=== PATIENT | male | born 1990 | race Caucasian/White ===

== ENCOUNTER 2017-01-06 14:10 | Inpatient (IN) | payer BC ==
[2017-01-06 15:48] VITALS: BMI 24.5
[2017-01-06] MEDS ORDERED: METHADONE HCL 10 MG TABLET (FOR DETOX USE ONLY) PO ONE ×2 (16:33→23:00)
[2017-01-06] MEDS ORDERED: guaiFENesin/D-METHORPHAN HB 10 ML UNIT-DOSE CUPS PO PRN (16:33)
[2017-01-06] MEDS ORDERED: MAGNESIUM HYDROX 2400MG/30ML ORAL SUSPENSION 30 ML CUP PO PRN (16:33)
[2017-01-06] MEDS ORDERED: LOPERAMIDE HCL 2 MG CAPSULE PO PRN (16:33)
[2017-01-06] MEDS ORDERED: MAGNESIUM CITRATE 300 ML BOTTLE PO PRN (16:33)
[2017-01-06] MEDS ORDERED: ACETAMINOPHEN 325 MG TABLET (FP) PO PRN (16:33)
[2017-01-06] MEDS ORDERED: MENTHOL/PHENOL 1 EACH UD MM PRN (16:33)
--- NOTE | 2017-01-06 16:37 | HP ---
COWS - Scale Resting Pulse: 1= [place] 81-100 Sweatin= Chills/Flushing Restless Observation: 1= Difficult to Sit Still Pupil Size: 1= Pupils >than Normal Bone or Joint Aches: 1= Mild Discomfort Runny Nose/ Eye Tearin= Runny Nose/Eyes GI Upset > 30mins: 1= Stomach Cramp Tremor Observation: 2= Slight Tremor Visible Yawning Observation: 0= None Anxiety or Irritability: 2=Irritable/Anxious Goose Flesh Skin: 3=Piloerection COWS Score: 15 Admission ROS S - HPI Chief Complaint: withdrawal sx Allergies/Adverse Reactions: Allergies Allergy/AdvReac Type Severity Reaction Status Date / Time SEAFOOD Allergy Severe Vomiting Uncoded 01/06/17 16:34 NKDA Allergy Uncoded 01/06/17 16:35 History of Present Illness: 26 years old male with long history of opiate nicotine dependence, has gerd and depression is admitted to detox Exam Limitations: No Limitations - Ebola screening Have you traveled outside of the country in the last 21 days: No Have you had contact with anyone from an Ebola affected area: No Have you been sick,other than usual withdrawal symptoms: No Do you have a fever: No - Review of Systems Constitutional: Chills, Changes in sleep, Weight Stable EENT: reports: No Symptoms Reported Respiratory: reports: Productive cough (brownish) Cardiac: reports: No Symptoms Reported GI: reports: Nausea, Poor Fluid Intake, Indigestion, Abdominal cramping : reports: No Symptoms Reported Musculoskeletal: reports: Back Pain Integumentary: reports: Change in Color (right inner elbow iv opiate) Neuro: reports: Tremors Endocrine: reports: No Symptoms Reported Hematology: reports: No Symptoms Reported Psychiatric: reports: Judgement Intact, Orientated x3, Depressed Other Systems: Reviewed and Negative Patient History - Patient Medical History Hx Anemia: No Hx Asthma: No Hx Chronic Obstructive Pulmonary Disease (COPD): No Hx Cancer: No Hx Cardiac Disorders: No Hx Congestive Heart Failure: No Hx Hypertension: No Hx Hypercholesterolemia: No Hx Pacemaker: No HX Cerebrovascular Accident: No Hx Seizures: No Hx Dementia: No Hx Diabetes: No Hx Gastrointestinal Disorders: Yes Hx Liver Disease: No Hx Genitourinary Disorders: No Hx Sexually Transmitted Disorders: No Hx Renal Disease (ESRD): No Hx Thyroid Disease: No Hx Human Immunodeficiency Virus (HIV): No Hx Hepatitis C: No Hx Depression: Yes Hx Suicide Attempt: No Hx Bipolar Disorder: No Hx Schizophrenia: No - Patient Surgical History Past Surgical History: Yes Hx Neurologic Surgery: No Hx Cataract Extraction: No Hx Cardiac Surgery: No Hx Lung Surgery: No Hx Breast Surgery: No Hx Breast Biopsy: No Hx Abdominal Surgery: No Hx Appendectomy: Yes Hx Cholecystectomy: No Hx Genitourinary Surgery: No Hx Orthopedic Surgery: No Anesthesia Reaction: No - PPD History Previous Implant?: Yes Documented Results: Negative w/o proof Implanted On Prior [facility] Admission?: No PPD to be Administered?: Yes - Smoking Cessation Smoking history: Current every day smoker Have you smoked in the past 12 months: Yes Aproximately how many cigarettes per day: 20 Cigars Per Day: 0 Hx Chewing Tobacco Use: No Initiated information on smoking cessation: Yes 'Breaking Loose' booklet given: 01/06/17 - Substance & Tx. History Hx Alcohol Use: No Hx Substance Use: Yes Substance Use Type: Opiates Hx Substance Use Treatment: Yes - Substances Abused Heroin Route: Injection Frequency: Daily Family Disease History - Family Disease History Family Disease History: Other: Father (colitis) Admission Physical Exam [facility] - Vital Signs Vital Signs: Vital Signs - 24 hr 01/06/17 15:44 Temperature 95.8 F L Pulse Rate 83 Respiratory 18 Rate Blood Pressure 115/75 - Physical General Appearance: Yes: Nourished, Appropriately Dressed, Mild Distress, Tremorous, Irritable, Sweating, Anxious HEENTM: Yes: Hearing grossly Normal, Normal ENT Inspection, Normocephalic, Normal Voice Respiratory: Yes: Chest Non-Tender, Lungs Clear, Normal Breath Sounds, No Respiratory Distress, No Accessory Muscle Use Neck: Yes: Supple, Trachea in good position Breast: Yes: Breasts Symetrical Cardiology: Yes: Regular Rhythm, Regular Rate, S1, S2 Abdominal: Yes: Non Tender, Soft Genitourinary: Yes: Within Normal Limits Back: Yes: Normal Inspection Musculoskeletal: Yes: full range of Motion, Gait Steady, Back pain Extremities: Yes: Normal Range of Motion, Non-Tender, Tremors, Other (right inner elbow iv opiate) Neurological: Yes: Fully Oriented, Alert, Motor Strength 5/5, Normal Response, Depressed Affect Integumentary: Yes: Warm, Track Lorenzo Lymphatic: Yes: Within Normal Limits - Diagnostic (1) Opioid dependence with withdrawal Current Visit: Yes Status: Acute (2) Nicotine dependence Current Visit: Yes Status: Acute Qualifiers: Nicotine product type: cigarettes Substance use status: in withdrawal Qualified Code(s): F17.213 - Nicotine dependence, cigarettes, with withdrawal (3) GERD (gastroesophageal reflux disease) Current Visit: Yes Status: Acute Qualifiers: Esophagitis presence: without esophagitis Qualified Code(s): K21.9 - Gastro-esophageal reflux disease without esophagitis (4) Depression (emotion) Current Visit: Yes Status: Suspected Qualifiers: Depression Type: dysthymia Qualified Code(s): F34.1 - Dysthymic disorder Cleared for Admission S - Detox or Rehab [facility] Level of Care: Medically Managed Detox Regimen/Protocol: Methadone S Breath Alcohol Content Breath Alcohol Content: 0 Urine Drug Screen - Control Is Test Valid: Yes - Results Drug Screen Negative: No Urine Drug Screen Results: OPI-Opiates, BZO-Benzodiazepines, TCA-Tricyclic Antidepress, OXY-Oxycodone
[2017-01-06] MEDS ORDERED: METHADONE HCL 10 MG TABLET (FOR DETOX USE ONLY) ONE (19:16)
[2017-01-06] MEDS: diazePAM 5 MG TABLET PO PRN (19:20)
[2017-01-06] MEDS: RANITIDINE HCL 150 MG TABLET (FP) PO SCH (22:10)
[2017-01-06] MEDS: THIAMINE HCL 100 MG TABLET (FP) PO SCH (22:10)
[2017-01-06] MEDS: diphenhydrAMINE HCL 50 MG CAPSULE PO PRN (22:12)
[2017-01-06 23:07] LABS: URINE APPEARANCE CLEAR; URINE BILIRUBIN NEGATIVE (NEGATIVE); URINE BLOOD NEGATIVE (NEGATIVE); URINE COLOR YELLOW; URINE GLUCOSE (UA) NEGATIVE (NEGATIVE); URINE KETONE NEGATIVE (NEGATIVE); URINE LEUK ESTERASE NEGATIVE (NEGATIVE); URINE NITRITE NEGATIVE (NEGATIVE); URINE PROTEIN NEGATIVE (NEGATIVE); URINE UROBILINOGEN NEGATIVE E.U./dl (0.2-1.0)
[2017-01-07] MEDS: diazePAM 5 MG TABLET PO PRN ×4 (06:23→22:52)
--- NOTE | 2017-01-07 09:24 | CONSULT ---
[facility] Psychiatric Consult - Data Date of interview: 01/07/17 Admission source: [facility] Identifying data: This is 26 years old male with no psychioatric hospitalization history intoxicated with : Heroin and Nicotine Substance Abuse History: - Smoking Cessation. Smoking history: Current every day smoker. Have you smoked in the past 12 months: Yes. Aproximately how many cigarettes per day: 20. Cigars Per Day: 0. Hx Chewing Tobacco Use: No. Initiated information on smoking cessation: Yes. 'Breaking Loose' booklet given : 01/06/17. - Substance & Tx. History. Hx Alcohol Use: No. Hx Substance Use: Yes. Substance Use Type: Opiates. Hx Substance Use Treatment: Yes. - Substances Abused. Heroin. Route: Injection. Frequency: Daily Medical History: GERD Psychiatric History: Patient reprots history of depression, reports no medications taking prior to admission Physical/Sexual Abuse/Trauma History: Denies Additional Comment: Obsedrvation. Detox Unit Care Protocol Mental Status Exam - Mental Status Exam Alert and Oriented to: Person Cognitive Function: Fair Patient Appearance: Unkempt Mood: Sad Affect: Flat Patient Behavior: Sedated Speech Pattern: Delayed Voice Loudness: Mildly Soft/Quiet Thought Process: Circumstantial Thought Disorder: Being Controlled Hallucinations: Denies Suicidal Ideation: Denies Homicidal Ideation: Denies Sleep: Difficulty falling asleep Appetite: Fair Muscle strength/Tone: Normal Gait/Station: Shuffling Additional Comments: Obsedrvation. Detox Unit Care Protocol Psychiatric Findings - Problem List ([place] 1, 2,3) (1) Nicotine dependence Current Visit: Yes Status: Acute Qualifiers: Nicotine product type: cigarettes Substance use status: in withdrawal Qualified Code(s): F17.213 - Nicotine dependence, cigarettes, with withdrawal (2) Opioid dependence with withdrawal Current Visit: Yes Status: Acute (3) Drug-induced mood disorder Current Visit: Yes Status: Acute - Initial Treatment Plan Initial Treatment Plan: Obsedrvation. Detox Unit Care Protocol
[2017-01-07] MEDS ORDERED: METHADONE HCL 10 MG TABLET (FOR DETOX USE ONLY) PO ONE (10:00)
[2017-01-07 10:10] LABS: MCH 29.1 pg (25.7-33.7); MCHC 33.8 g/dl (32.0-35.9); MEAN CELL VOLUME 86.2 fl (80-96); MEAN PLT VOLUME 10.1 fl (7.5-11.1); PLATELET COUNT 151 K/MM3 (134-434); RDW 13.7 % (11.9-15.9); WHITE BLOOD COUNT 6.9 K/mm3 (4.0-10.0)
[2017-01-07] MEDS: NICOTINE 21 MG/24 HOURS TOPICAL PATCH TD SCH (10:52)
[2017-01-07] MEDS: NICOTINE POLACRILEX 4 MG GUM BUC PRN ×4 (10:53→23:13)
[2017-01-07] MEDS: RANITIDINE HCL 150 MG TABLET (FP) PO SCH ×2 (10:54→22:52)
[2017-01-07] MEDS: P-EPHED 60MG/TRIPROLIDI 2.5MG TABLET PO PRN (10:54)
[2017-01-07] MEDS: PRENATAL VITAMINS W/ FOLIC ACID TABLET (FP) PO SCH (10:55)
[2017-01-07 11:13] LABS: ALK PHOS 74 U/L (45-117); ANION GAP 6 (8-16); BILIRUBIN,TOTAL 0.3 mg/dL (0.2-1.0); CO2 28 mmol/L (21-32); CREATININE 0.8 mg/dL (0.7-1.3); GLUCOSE,RANDOM 94 mg/dL (74-106); SGOT/AST 21 U/L (15-37); SGPT/ALT 32 U/L (12-78); TOT PROT 7.2 g/dl (6.4-8.2)
--- NOTE | 2017-01-07 11:14 | PN ---
[facility] COWS - Scale Resting Pulse: 0= [place] 80 or Below Sweatin=Flushed/Facial Moisture Restless Observation: 1= Difficult to Sit Still Pupil Size: 0= Normal to Room Light Bone or Joint Aches: 2= Severe Diffuse Aches Runny Nose/ Eye Tearin= Runny Nose/Eyes GI Upset > 30mins: 1= Stomach Cramp Tremor Observation of Outstretched Hands: 2= Slight Tremor Visible Yawning Observation: 2= >3x During Session Anxiety or Irritability: 2=Irritable/Anxious Goose Flesh Skin: 0=Smooth Skin COWS Score: 14 BHS Progress Note (SOAP) Subjective: sweats shakes interrupted sleep agitation anxiety body aches Objective: 01/07/17 11:13 Vital Signs Temperature 96.8 F L 01/07/17 09:32 Pulse Rate 66 01/07/17 09:32 Respiratory Rate 18 01/07/17 09:32 Blood Pressure 118/77 01/07/17 09:32 O2 Sat by Pulse Oximetry (%) Laboratory Tests 01/06/17 01/07/17 22:21 07:00 WBC 6.9 RBC 5.20 Hgb 15.1 Hct 44.8 MCV 86.2 MCHC 33.8 RDW 13.7 Plt Count 151 MPV 10.1 Urine Color Yellow Urine Appearance Clear Urine pH 5.0 Ur Specific [place] 1.017 Urine Protein Negative Urine Glucose (UA) Negative Urine Ketones Negative Urine Blood Negative Urine Nitrite Negative Urine Bilirubin Negative Urine Urobilinogen Negative Ur Leukocyte Esterase Negative labs pending awake/alert ambulating no acute distress Assessment: 01/07/17 11:14 withdrawal sx Plan: continue detox increase fluids labs pending
--- NOTE | 2017-01-07 17:17 | EKG ---
Test Reason : Blood Pressure : / mmHG Vent. Rate : 069 BPM Atrial Rate : 069 BPM P-R Int : 180 ms QRS Dur : 092 ms QT Int : 368 ms P-R-T Axes : 032 050 057 degrees QTc Int : 394 ms NORMAL SINUS RHYTHM NORMAL ECG NO PREVIOUS ECGS AVAILABLE Confirmed by JASON RICHARDS MD ([id number]) on 01/07/2017 5:17:09 PM Referred By: Jimy Vasquez Confirmed By:JASON RICHARDS MD
[2017-01-07] MEDS: THIAMINE HCL 100 MG TABLET (FP) PO SCH (22:52)
[2017-01-07] MEDS: diphenhydrAMINE HCL 50 MG CAPSULE PO PRN (22:53)
[2017-01-07] MEDS: MAG HYDROX/AL HYDROX/SIMETH 30 ML UNIT-DOSE CUP PO PRN (22:54)
[2017-01-08] MEDS: NICOTINE POLACRILEX 4 MG GUM BUC PRN ×4 (08:55→22:11)
[2017-01-08] MEDS: diazePAM 5 MG TABLET PO PRN ×4 (08:57→22:10)
[2017-01-08] MEDS ORDERED: METHADONE HCL 5 MG TABLET (FOR DETOX USE ONLY) PO ONE (10:00)
[2017-01-08] MEDS: PRENATAL VITAMINS W/ FOLIC ACID TABLET (FP) PO SCH (10:17)
[2017-01-08] MEDS: RANITIDINE HCL 150 MG TABLET (FP) PO SCH ×2 (10:17→22:10)
[2017-01-08] MEDS: NICOTINE 21 MG/24 HOURS TOPICAL PATCH TD SCH (10:18)
--- NOTE | 2017-01-08 13:02 | PN ---
S COWS - Scale Resting Pulse: 0= [place] 80 or Below Sweatin=Flushed/Facial Moisture Restless Observation: 3= Extraneous Movement Pupil Size: 1= Pupils >than Normal Bone or Joint Aches: 2= Severe Diffuse Aches Runny Nose/ Eye Tearin= Runny Nose/Eyes GI Upset > 30mins: 2= Nausea/Diarrhea Tremor Observation of Outstretched Hands: 2= Slight Tremor Visible Yawning Observation: 1= 1-2x During Session Anxiety or Irritability: 2=Irritable/Anxious Goose Flesh Skin: 0=Smooth Skin COWS Score: 17 S Progress Note (SOAP) Subjective: ALERT,IRRITABLE,ANXIOUS,INTERRUPTED SLEEP,TREMOR,PAIN IN THE BODY AND BACK Objective: 01/08/17 13:01 Vital Signs Temperature 97.7 F 01/08/17 10:23 Pulse Rate 75 01/08/17 10:23 Respiratory Rate 16 01/08/17 10:23 Blood Pressure 120/74 01/08/17 10:23 O2 Sat by Pulse Oximetry (%) EKG NSR,NORMAL ECG Laboratory Last Values WBC 6.9 K/mm3 (4.0-10.0) 01/07/17 07:00 RBC 5.20 M/mm3 (4.00-5.60) 01/07/17 07:00 Hgb 15.1 GM/dL (11.7-16.9) 01/07/17 07:00 Hct 44.8 % (35.4-49) 01/07/17 07:00 MCV 86.2 fl (80-96) 01/07/17 07:00 MCHC 33.8 g/dl (32.0-35.9) 01/07/17 07:00 RDW 13.7 % (11.9-15.9) 01/07/17 07:00 Plt Count 151 K/MM3 (134-434) 01/07/17 07:00 MPV 10.1 fl (7.5-11.1) 01/07/17 07:00 Sodium 138 mmol/L (136-145) 01/07/17 07:00 Potassium 4.7 mmol/L (3.5-5.1) 01/07/17 07:00 Chloride 104 mmol/L (98-107) 01/07/17 07:00 Carbon Dioxide 28 mmol/L (21-32) 01/07/17 07:00 Anion Gap 6 (8-16) L 01/07/17 07:00 BUN 9 mg/dL (7-18) 01/07/17 07:00 Creatinine 0.8 mg/dL (0.7-1.3) 01/07/17 07:00 Creat Clearance w eGFR > 60 (>60) 01/07/17 07:00 Random Glucose 94 mg/dL (74-106) 01/07/17 07:00 Calcium 9.0 mg/dL (8.5-10.1) 01/07/17 07:00 Total Bilirubin 0.3 mg/dL (0.2-1.0) 01/07/17 07:00 AST 21 U/L (15-37) 01/07/17 07:00 ALT 32 U/L (12-78) 01/07/17 07:00 Alkaline Phosphatase 74 U/L (45-117) 01/07/17 07:00 Total Protein 7.2 g/dl (6.4-8.2) 01/07/17 07:00 Albumin 4.0 g/dl (3.4-5.0) 01/07/17 07:00 Urine Color Yellow 01/06/17 22:21 Urine Appearance Clear 01/06/17 22:21 Urine pH 5.0 (5.0-8.0) 01/06/17 22:21 Ur Specific [place] 1.017 (1.001-1.035) 01/06/17 22:21 Urine Protein Negative (NEGATIVE) 01/06/17 22:21 Urine Glucose (UA) Negative (NEGATIVE) 01/06/17 22:21 Urine Ketones Negative (NEGATIVE) 01/06/17 22:21 Urine Blood Negative (NEGATIVE) 01/06/17 22:21 Urine Nitrite Negative (NEGATIVE) 01/06/17 22:21 Urine Bilirubin Negative (NEGATIVE) 01/06/17 22:21 Urine Urobilinogen Negative E.U./dl (0.2-1.0) 01/06/17 22:21 Ur Leukocyte Esterase Negative (NEGATIVE) 01/06/17 22:21 RPR Titer Nonreactive (NONREACTIVE) 01/07/17 07:00 Assessment: 01/08/17 13:02 WITHDRAWAL SYMPTOM Plan: CONTINUE DETOX
[2017-01-08] MEDS: THIAMINE HCL 100 MG TABLET (FP) PO SCH (22:10)
[2017-01-08] MEDS: P-EPHED 60MG/TRIPROLIDI 2.5MG TABLET PO PRN (22:11)
[2017-01-08] MEDS: diphenhydrAMINE HCL 50 MG CAPSULE PO PRN (22:12)
[2017-01-09] MEDS: diazePAM 5 MG TABLET PO PRN ×3 (06:05→14:48)
[2017-01-09] MEDS: NICOTINE POLACRILEX 4 MG GUM BUC PRN ×4 (06:06→22:37)
--- NOTE | 2017-01-09 09:15 | PN ---
BHS Progress Note Note: PPD READ AT 72 HOURS RIGHT FOREARM IS NEGATIVE 0 MM,NO CHEST X RAY NEEDED
[2017-01-09] MEDS ORDERED: METHADONE HCL 5 MG TABLET (FOR DETOX USE ONLY) PO ONE (10:00)
[2017-01-09] MEDS: PRENATAL VITAMINS W/ FOLIC ACID TABLET (FP) PO SCH (10:07)
[2017-01-09] MEDS: RANITIDINE HCL 150 MG TABLET (FP) PO SCH ×2 (10:08→22:35)
[2017-01-09] MEDS: NICOTINE 21 MG/24 HOURS TOPICAL PATCH TD SCH (10:09)
--- NOTE | 2017-01-09 11:16 | PN ---
BHS Progress Note (SOAP) Subjective: ALERT,IRRITABLE,ANXIOUS,INTERRUPTED SLEEP,PAIN IN THE BODY Objective: 01/09/17 11:16 Vital Signs Temperature 97.9 F 01/09/17 09:57 Pulse Rate 88 01/09/17 09:57 Respiratory Rate 18 01/09/17 09:57 Blood Pressure 109/78 01/09/17 09:57 O2 Sat by Pulse Oximetry (%) Assessment: 01/09/17 11:16 WITHDRAWAL SYMPTOM Plan: CONTINUE DETOX
[2017-01-09] MEDS: MAG HYDROX/AL HYDROX/SIMETH 30 ML UNIT-DOSE CUP PO PRN (17:26)
[2017-01-09] MEDS: THIAMINE HCL 100 MG TABLET (FP) PO SCH (22:35)
[2017-01-09] MEDS: diphenhydrAMINE HCL 50 MG CAPSULE PO PRN (22:36)
[2017-01-10] MEDS ORDERED: METHADONE HCL 10 MG TABLET (FOR DETOX USE ONLY) PO ONE (10:00)
[2017-01-10] MEDS: PRENATAL VITAMINS W/ FOLIC ACID TABLET (FP) PO SCH (10:45)
[2017-01-10] MEDS: RANITIDINE HCL 150 MG TABLET (FP) PO SCH ×2 (10:45→22:49)
[2017-01-10] MEDS: NICOTINE 21 MG/24 HOURS TOPICAL PATCH TD SCH (10:46)
[2017-01-10] MEDS: NICOTINE POLACRILEX 4 MG GUM BUC PRN ×3 (10:48→22:51)
[2017-01-10] MEDS: CYCLOBENZAPRINE HCL 10 MG TABLET (FP) PO PRN ×2 (13:38→22:50)
[2017-01-10] MEDS: MAG HYDROX/AL HYDROX/SIMETH 30 ML UNIT-DOSE CUP PO PRN (13:39)
--- NOTE | 2017-01-10 15:22 | PN ---
BHS Progress Note (SOAP) Subjective: Anxious, restless, sweating, interrupted sleep, back spasm Objective: 01/10/17 15:20 Last Vital Signs Temp Pulse Resp BP Pulse Ox 98.2 F 90 18 135/71 01/10/17 13:57 01/10/17 13:57 01/10/17 13:57 01/10/17 13:57 Laboratory Tests 01/06/17 01/07/17 01/07/17 22:21 07:00 07:00 WBC 6.9 RBC 5.20 Hgb 15.1 Hct 44.8 MCV 86.2 MCHC 33.8 RDW 13.7 Plt Count 151 MPV 10.1 Sodium 138 Potassium 4.7 Chloride 104 Carbon Dioxide 28 Anion Gap 6 L BUN 9 Creatinine 0.8 Creat Clearance w eGFR > 60 Random Glucose 94 Calcium 9.0 Total Bilirubin 0.3 AST 21 ALT 32 Alkaline Phosphatase 74 Total Protein 7.2 Albumin 4.0 Urine Color Yellow Urine Appearance Clear Urine pH 5.0 Ur Specific [place] 1.017 Urine Protein Negative Urine Glucose (UA) Negative Urine Ketones Negative Urine Blood Negative Urine Nitrite Negative Urine Bilirubin Negative Urine Urobilinogen Negative Ur Leukocyte Esterase Negative RPR Titer 01/07/17 07:00 WBC RBC Hgb Hct MCV MCHC RDW Plt Count MPV Sodium Potassium Chloride Carbon Dioxide Anion Gap BUN Creatinine Creat Clearance w eGFR Random Glucose Calcium Total Bilirubin AST ALT Alkaline Phosphatase Total Protein Albumin Urine Color Urine Appearance Urine pH Ur Specific [place] Urine Protein Urine Glucose (UA) Urine Ketones Urine Blood Urine Nitrite Urine Bilirubin Urine Urobilinogen Ur Leukocyte Esterase RPR Titer Nonreactive Labs noted Assessment: 01/10/17 15:20 Withdrawal symptoms c/o muscle spasm Plan: Continue detox Muscle spasm: flexeril 10mg PO TID PRN
[2017-01-10] MEDS: diphenhydrAMINE HCL 50 MG CAPSULE PO PRN (22:49)
[2017-01-10] MEDS: THIAMINE HCL 100 MG TABLET (FP) PO SCH (22:49)
[2017-01-11] MEDS: CYCLOBENZAPRINE HCL 10 MG TABLET (FP) PO PRN (05:42)
[2017-01-11] MEDS ORDERED: METHADONE HCL 5 MG TABLET (FOR DETOX USE ONLY) PO ONE (06:00)
[2017-01-11] MEDS: PRENATAL VITAMINS W/ FOLIC ACID TABLET (FP) PO SCH (10:17)
[2017-01-11] MEDS: RANITIDINE HCL 150 MG TABLET (FP) PO SCH (10:17)
[2017-01-11] MEDS: NICOTINE 21 MG/24 HOURS TOPICAL PATCH TD SCH (10:17)
[2017-01-11 10:26] VITALS: BP 113/61; PULSE 70; TEMP 97.5
== END 2017-01-11 10:26 | disposition home or self-care (01) | DRG 773 ==
LOC: YASAS 14:10 → Y6N 17:56
PROVIDERS: ADMIT Internal Medicine Addiction Medicine; ATTEND Internal Medicine Addiction Medicine
PROC: HZ2ZZZZ Detoxification Services for Substance Abuse Treatment (ICD-10-PCS; principal; 2017-01-07)
DX: F11.23 Opioid dependence with withdrawal (principal); F17.210 Nicotine dependence, cigarettes, uncomplicated; F19.24 Other psychoactive substance dependence with psychoactive substance-induced mood disorder; F34.1 Dysthymic disorder; K21.9 Gastro-esophageal reflux disease without esophagitis; M62.830 Muscle spasm of back
CPT/HCPCS: 36415; 80053; 81003; 85027; 86593; 93005; 93010

== ENCOUNTER 2023-03-01 23:34 | Inpatient (IN) | payer OTHER ==
[2023-03-02 00:17] VITALS: BMI 23.6
[2023-03-02] MEDS ORDERED: BISMUTH SUBSALICYLATE 524 MG/30 ML PO PRN (01:07)
[2023-03-02] MEDS ORDERED: ACETAMINOPHEN 325 MG TABLET (FP) PO PRN (01:07)
[2023-03-02] MEDS ORDERED: NALOXONE HCL (KLOXXADO) 8 MG SPRAY NS PRN (01:07)
[2023-03-02] MEDS ORDERED: IBUPROFEN 400 MG TABLET (FP) PO PRN (01:07)
[2023-03-02] MEDS ORDERED: ONDANSETRON *ODT* 4 MG TABLET SL PRN (01:07)
[2023-03-02] MEDS ORDERED: LOPERAMIDE HCL 2 MG CAPSULE PO PRN (01:07)
[2023-03-02] MEDS ORDERED: BENZONATATE 200 MG CAPSULE PO PRN (01:07)
[2023-03-02] MEDS ORDERED: guaiFENesin 600 MG TABLET.ER (FP) PO PRN (01:07)
[2023-03-02] MEDS ORDERED: MAGNESIUM HYDROX 2400MG/30ML ORAL SUSPENSION 30 ML CUP PO PRN (01:07)
[2023-03-02] MEDS ORDERED: DICYCLOMINE HCL 10 MG CAPSULE PO PRN (01:07)
[2023-03-02] MEDS ORDERED: NALOXONE HCL 0.4 MG/ML VIAL IM PRN (01:07)
[2023-03-02] MEDS ORDERED: BENZOCAINE/MENTHOL (CHLORASEPTIC ) LOZENGE MM PRN (01:07)
[2023-03-02] MEDS ORDERED: NICOTINE 10 MG CARTRIDGE (INHALER) IH PRN (01:07)
[2023-03-02] MEDS ORDERED: IBUPROFEN 600 MG TABLET (FP) PO PRN (01:07)
[2023-03-02] MEDS ORDERED: MAG HYDROX/AL HYDROX/SIMETH 30 ML UNIT-DOSE CUP PO PRN (01:07)
[2023-03-02] MEDS ORDERED: POLYETHYLENE GLYCOL (HEALTHYLAX) 3350 17 GM PACKET PO PRN (01:07)
[2023-03-02] MEDS ORDERED: cloNIDine HCL 0.1 MG TABLET PO PRN (01:11)
[2023-03-02] MEDS ORDERED: methaDONE HCL 10 MG TABLET (FOR DETOX USE ONLY) PO ONE (01:11)
[2023-03-02] MEDS ORDERED: methaDONE HCL 10 MG TABLET (FOR DETOX USE ONLY) ONE (02:08)
[2023-03-02] MEDS: diazePAM 5 MG TABLET PO SCH ×4 (05:55→22:04)
[2023-03-02] MEDS: PRENATAL VITAMINS W/ FOLIC ACID TABLET (FP) PO SCH (10:22)
[2023-03-02] MEDS: NICOTINE 21 MG/24 HOURS TOPICAL PATCH TD SCH (10:23)
[2023-03-02] MEDS: METHOCARBAMOL 500 MG TABLET PO PRN (22:03)
[2023-03-02] MEDS: THIAMINE HCL 100 MG TABLET (FP) PO SCH (22:03)
[2023-03-02] MEDS: MELATONIN 5 MG TABLETS PO SCH (22:03)
[2023-03-03] MEDS: diazePAM 5 MG TABLET PO SCH ×3 (05:50→22:57)
[2023-03-03] MEDS: METHOCARBAMOL 500 MG TABLET PO PRN ×2 (05:50→13:54)
[2023-03-03] MEDS: diazePAM 5 MG TABLET PO PRN ×2 (09:34→17:38)
[2023-03-03] MEDS: NICOTINE 21 MG/24 HOURS TOPICAL PATCH TD SCH (09:35)
[2023-03-03] MEDS: PRENATAL VITAMINS W/ FOLIC ACID TABLET (FP) PO SCH (09:36)
[2023-03-03 11:21] LABS: POTASSIUM 4.7 mmol/L (3.5-5.1)
[2023-03-03 11:22] LABS: CALCIUM 9.5 mg/dL (8.5-10.1)
[2023-03-03 11:24] LABS: HEMATOCRIT 42.3 % (35.4-49); HEMOGLOBIN 14.7 GM/dL (11.7-16.9); MCHC 34.6 g/dl (32.0-35.9); MEAN CELL VOLUME 83.7 fl (80-96); PLATELET COUNT 198 10^3/uL (134-434); RBC 5.05 M/mm3 (4.00-5.60); RDW 14.6 % (11.9-15.9); WHITE BLOOD COUNT 6.9 K/mm3 (4.0-10.0)
[2023-03-03 11:25] LABS: BLOOD UREA NITROGEN 11.3 mg/dL (7-18)
[2023-03-03 11:27] LABS: CREATININE 0.7 mg/dL (0.55-1.3)
[2023-03-03 11:28] LABS: BILIRUBIN,TOTAL 0.6 mg/dL (0.2-1); TOT PROT 7.9 g/dl (6.4-8.2)
[2023-03-03 16:56] VITALS: RESP 18
[2023-03-03] MEDS: MELATONIN 5 MG TABLETS PO SCH (22:56)
[2023-03-03] MEDS: THIAMINE HCL 100 MG TABLET (FP) PO SCH (22:56)
[2023-03-04] MEDS ORDERED: diazePAM 5 MG TABLET PO SCH (06:00)
[2023-03-04 09:59] VITALS: BP 108/69; PULSE 72; TEMP 98.3
[2023-03-04] MEDS ORDERED: methaDONE HCL 10 MG TABLET (FOR DETOX USE ONLY) PO ONE (10:00)
[2023-03-04] MEDS: NICOTINE 21 MG/24 HOURS TOPICAL PATCH TD SCH (10:04)
[2023-03-04] MEDS: PRENATAL VITAMINS W/ FOLIC ACID TABLET (FP) PO SCH (10:04)
[2023-03-05] MEDS ORDERED: diazePAM 5 MG TABLET PO ONE (06:00)
[2023-03-06] MEDS ORDERED: methaDONE HCL 10 MG TABLET (FOR DETOX USE ONLY) PO ONE (10:00)
== END 2023-03-04 10:26 | disposition left against medical advice (07) | DRG 770 ==
LOC: YASAS 23:34 → Y6N 03-02 02:22
PROVIDERS: ADMIT Allergy & Immunology; ATTEND Surgery
PROC: HZ2ZZZZ Detoxification Services for Substance Abuse Treatment (ICD-10-PCS; principal; 2023-03-02)
DX: F11.23 Opioid dependence with withdrawal (principal); F13.230 Sedative, hypnotic or anxiolytic dependence with withdrawal, uncomplicated; F14.20 Cocaine dependence, uncomplicated; F17.210 Nicotine dependence, cigarettes, uncomplicated; K21.9 Gastro-esophageal reflux disease without esophagitis
CPT/HCPCS: 36415; 80053; 85027; 86780; 93005; 93010; C9803-CS; U0003; U0005

== ENCOUNTER 2024-05-03 22:57 | Inpatient (IN) | payer OTHER ==
[2024-05-03 23:32] VITALS: BMI 22.9
[2024-05-04] MEDS ORDERED: DICYCLOMINE HCL 10 MG CAPSULE PO PRN (02:15)
[2024-05-04] MEDS ORDERED: ACETAMINOPHEN 325 MG TABLET (FP) PO PRN (02:15)
[2024-05-04] MEDS ORDERED: BISMUTH SUBSALICYLATE 524 MG/30 ML PO PRN (02:15)
[2024-05-04] MEDS ORDERED: NICOTINE POLACRILEX 2 MG GUM BUC PRN (02:15)
[2024-05-04] MEDS ORDERED: hydrOXYzine PAMOATE 25 MG CAPSULE (FP) PO PRN (02:15)
[2024-05-04] MEDS ORDERED: ONDANSETRON *ODT* 4 MG TABLET SL PRN (02:15)
[2024-05-04] MEDS ORDERED: POLYETHYLENE GLYCOL (HEALTHYLAX) 3350 17 GM PACKET PO PRN (02:15)
[2024-05-04] MEDS ORDERED: IBUPROFEN 400 MG TABLET (FP) PO PRN (02:15)
[2024-05-04] MEDS ORDERED: NALOXONE HCL 0.4 MG/ML VIAL IM PRN (02:15)
[2024-05-04] MEDS ORDERED: MAGNESIUM HYDROX 2400MG/30ML ORAL SUSPENSION 30 ML CUP PO PRN (02:15)
[2024-05-04] MEDS ORDERED: IBUPROFEN 600 MG TABLET (FP) PO PRN (02:15)
[2024-05-04] MEDS ORDERED: LOPERAMIDE HCL 2 MG CAPSULE PO PRN (02:15)
[2024-05-04] MEDS ORDERED: BENZOCAINE/MENTHOL (CHLORASEPTIC ) LOZENGE MM PRN (02:15)
[2024-05-04] MEDS ORDERED: NALOXONE (NARCAN) HCL 4 MG/0.1 ML SPRAY NS PRN ×2 (02:15→09:21)
[2024-05-04] MEDS ORDERED: guaiFENesin 600 MG TABLET.ER (FP) PO PRN (02:15)
[2024-05-04] MEDS ORDERED: BENZONATATE 200 MG CAPSULE PO PRN (02:15)
[2024-05-04] MEDS ORDERED: methaDONE HCL 10 MG TABLET (FOR DETOX USE ONLY) ONE (09:50)
[2024-05-04] MEDS ORDERED: PRENATAL VITAMINS W/ FOLIC ACID TABLET (FP) PO ONE (09:50)
[2024-05-04] MEDS ORDERED: NICOTINE 14 MG/24 HOURS TOPICAL PATCH TD ONE (09:50)
[2024-05-04] MEDS ORDERED: cloNIDine HCL 0.1 MG TABLET ONE (09:50)
[2024-05-04] MEDS: NICOTINE 14 MG/24 HOURS TOPICAL PATCH TD SCH (09:53)
[2024-05-04] MEDS: cloNIDine HCL 0.1 MG TABLET PO SCH (09:53)
[2024-05-04] MEDS: PRENATAL VITAMINS W/ FOLIC ACID TABLET (FP) PO SCH (09:53)
[2024-05-04] MEDS: methaDONE HCL 10 MG TABLET PO ONE (09:54)
[2024-05-04] MEDS ORDERED: LORazepam 2 MG TABLET ONE (11:19)
[2024-05-04] MEDS ORDERED: methaDONE HCL 10 MG TABLET PO PRN (11:20)
[2024-05-04] MEDS: LORazepam 2 MG TABLET PO SCH (11:21)
[2024-05-04] MEDS: LORazepam 1 MG TABLET PO PRN (14:19)
[2024-05-04] MEDS: GABAPENTIN 100 MG CAPSULE PO SCH (15:42)
[2024-05-04] MEDS: MAG HYDROX/AL HYDROX/SIMETH 30 ML UNIT-DOSE CUP PO PRN (15:49)
[2024-05-04] MEDS: METHOCARBAMOL 500 MG TABLET PO PRN (17:40)
[2024-05-04] MEDS ORDERED: MELATONIN 5 MG TABLETS PO SCH (22:00)
[2024-05-04] MEDS: THIAMINE 100 MG TABLET PO SCH (22:32)
[2024-05-04] MEDS: SUVOREXANT 10 MG TABLET PO PRN (22:33)
[2024-05-05 08:45] VITALS: RESP 16
[2024-05-05] MEDS: methaDONE 40 MG, methaDONE 10 MG PO ONE (09:35)
[2024-05-05 11:59] LABS: HEMATOCRIT 37.6 % (35.4-49); HEMOGLOBIN 12.8 GM/dL (11.7-16.9); MCH 29.2 pg (25.7-33.7); MEAN CELL VOLUME 85.9 fl (80-96); MEAN PLT VOLUME 10.3 fl (7.5-11.1); PLATELET COUNT 165 10^3/uL (134-434); RBC 4.38 M/mm3 (4.00-5.60); RDW 13.3 % (11.9-15.9); WHITE BLOOD COUNT 5.3 K/mm3 (4.0-10.0)
[2024-05-05 12:09] LABS: POTASSIUM 4.4 mmol/L (3.5-5.1)
[2024-05-05 12:23] LABS: CALCIUM 8.9 mg/dL (8.5-10.1)
[2024-05-05 12:24] LABS: ALBUMIN 3.5 g/dl (3.4-5.0); BLOOD UREA NITROGEN 14.2 mg/dL (7-18)
[2024-05-05 12:27] LABS: CREATININE 0.6 mg/dL (0.55-1.3)
[2024-05-05 12:29] LABS: BILIRUBIN,TOTAL 0.2 mg/dL (0.2-1); TOT PROT 6.5 g/dl (6.4-8.2)
[2024-05-05 12:42] VITALS: BP 107/72; PULSE 60; TEMP 98.6
[2024-05-06] MEDS ORDERED: cloNIDine HCL 0.1 MG TABLET PO PRN
[2024-05-06] MEDS ORDERED: LORazepam 1 MG TABLET PO SCH (05:00)
[2024-05-06] MEDS ORDERED: methaDONE 40 MG, methaDONE 20 MG PO ONE (10:00)
[2024-05-07] MEDS ORDERED: LORazepam 0.5 MG TABLET PO PRN
[2024-05-07] MEDS ORDERED: LORazepam 0.5 MG TABLET PO SCH (05:00)
[2024-05-07] MEDS ORDERED: methaDONE 40 MG, methaDONE 30 MG PO ONE (10:00)
[2024-05-08] MEDS ORDERED: LORazepam 0.5 MG TABLET PO ONE (05:00)
[2024-05-08] MEDS ORDERED: methaDONE HCL 40 MG DISPERSABLE TABLET PO ONE (10:00)
[2024-05-09] MEDS ORDERED: methaDONE 80 MG, methaDONE 10 MG PO ONE (10:00)
== END 2024-05-05 12:45 | disposition home or self-care (01) | DRG 773 ==
LOC: YASAS 22:57 → Y6N 05-04 10:49
PROVIDERS: ADMIT Allergy & Immunology; ATTEND Family Medicine Addiction Medicine
PROC: HZ2ZZZZ Detoxification Services for Substance Abuse Treatment (ICD-10-PCS; principal; 2024-05-04)
DX: F11.23 Opioid dependence with withdrawal (principal); F13.20 Sedative, hypnotic or anxiolytic dependence, uncomplicated; F14.20 Cocaine dependence, uncomplicated; F17.210 Nicotine dependence, cigarettes, uncomplicated; F19.282 Other psychoactive substance dependence with psychoactive substance-induced sleep disorder; F19.280 Other psychoactive substance dependence with psychoactive substance-induced anxiety disorder; F34.1 Dysthymic disorder; F41.9 Anxiety disorder, unspecified; G47.00 Insomnia, unspecified; Z56.0 Unemployment, unspecified
CPT/HCPCS: 36415; 80053; 80305; 80307; 85027; 86780; 93005; 93010